=== PATIENT | female | born 1965 | race Caucasian/White ===

== ENCOUNTER 2021-05-21 09:41 | Outpatient (CLI) | payer OTHER, SELFPAY ==
[2021-05-21 12:01] LABS: SARS-CoV-2 RNA PCR Negative (Negative)
== END 2021-05-21 09:42 | disposition home or self-care (01) ==
LOC: CHSLAB 09:48
PROVIDERS: PCP Physician Assistant; Visit Provider Physician Assistant
DX: Z20.822 Contact with and (suspected) exposure to COVID-19 (principal)
CPT/HCPCS: C9803; U0003; U0005

== ENCOUNTER 2021-07-22 07:42 | Outpatient (CLI) | payer OTHER, SELFPAY ==
[2021-07-22 11:31] LABS: SARS-CoV-2 RNA PCR Negative (Negative)
== END 2021-07-22 07:43 | disposition home or self-care (01) ==
LOC: CHSLAB 07:43
PROVIDERS: PCP Physician Assistant; Visit Provider Physician Assistant
DX: B34.9 Viral infection, unspecified (principal); Z20.822 Contact with and (suspected) exposure to COVID-19
CPT/HCPCS: C9803; U0003; U0005